=== PATIENT | female | born 1935 | race Caucasian/White ===

== ENCOUNTER → 2017-03-07 | Outpatient (CLI) | payer MEDICARE ==
[~2017-03-07] MED LIST: AMLO10 PO; Amlodipine Bes2.5 MG PO; DABI150C PO; ERGO50000 PO; LEVSOD75 PO; LEVSOD88 PO; LORA.5 PO; LOSA50 PO; MECL25 PO; Macrobid 100 M100 MG PO; NEBI5 PO; OMEP20ER PO; PROP120ER PO; SIMV5 PO; TRIHYD253B PO
== END | disposition home or self-care (01) ==
LOC: PLD 11:56 → LAB SHORT 11:56
DX: D48.5 Neoplasm of uncertain behavior of skin (principal)
CPT/HCPCS: 88305; 88312

== ENCOUNTER → 2017-07-03 | Outpatient (CLI) | payer MEDICARE | LOC: PLD 11:01 → LAB SHORT 11:01 | DX: D48.5 Neoplasm of uncertain behavior of skin (principal) | CPT/HCPCS: 88305 ==

== ENCOUNTER → 2018-12-11 | Outpatient (CLI) | payer MEDICARE ==
[~2018-12-11] MED LIST changes: +IRON240 MG; +PRED20
[2018-12-12 14:40] LABS: Stool Occult Bld Immuno 1 Negative (NEGATIVE); Stool Occult Bld Immuno 2 Positive (NEGATIVE)
== END | disposition home or self-care (01) ==
LOC: LAB SHORT 12-03 14:35 → LAB 14:35 → LAB SHORT 14:35 → LAB FUT 12-10 12:40
PROVIDERS: Internal Medicine
DX: D64.9 Anemia, unspecified (principal)
CPT/HCPCS: G0328

== ENCOUNTER 2018-12-16 17:28 | Emergency (ER) | payer MEDICARE ==
[~2018-12-16] VITALS: Ht 157.5 cm; Wt 66.7 kg
[~2018-12-16 17:28] MED LIST changes: -IRON240 MG; -PRED20
[2018-12-16] MEDS ORDERED: PRED20 (17:52)
[2018-12-16] MEDS ORDERED: IRON240 MG (17:53)
[2018-12-16 18:11] LABS: BASOPHILS ABSOLUTE AUTO 0.01 K/mm3 (0.00-0.23); BASOPHILS PERCENT AUTO 0 % (0-2); EOSINOPHILS PERCENT AUTO 0 % (0-6); Hematocrit 35.9 % (33.0-51.0); Hemoglobin 11.1 g/dL (11.5-16.0); IMMATURE GRAN ABSOLUTE AUTO 0.07 K/mm3 (0.00-0.10); IMMATURE GRAN PERCENT AUTO 1 % (0-1); LYMPHOCYTES ABSOLUTE AUTO 1.43 K/mm3 (0.84-5.20); LYMPHOCYTES PERCENT AUTO 13 % (21-46); MONOCYTES ABSOLUTE AUTO 0.33 K/mm3 (0.16-1.47); MONOCYTES PERCENT AUTO 3 % (4-13); Mean Corpuscular HGB 26.8 pg (26.0-34.0); Mean Corpuscular HGB Conc 30.9 g/dL (31.5-36.5); Mean Corpuscular Volume 87 fL (80-100); Mean Platelet Volume 9.3 fL (9.1-12.4); NEUTROPHILS ABSOLUTE AUTO 9.17 K/mm3 (1.96-9.15); NEUTROPHILS PERCENT AUTO 83 % (41-73); Platelet Count 296 K/mm3 (150-400); RDW Coefficient Variation 13.7 % (11.7-14.2); RDW Standard Deviation 43.7 fL (35.1-46.3); Red Blood Cell Count 4.14 M/mm3 (3.80-5.20); White Blood Cell Count 11.01 K/mm3 (4.00-11.30)
[2018-12-16 18:51] LABS: Albumin, Blood 2.5 g/dL (3.4-5.0); Albumin/Globulin Ratio 0.7 (0.8-1.8); Bilirubin, Total 0.4 mg/dL (0.1-1.0); Calcium, Blood 8.9 mg/dL (8.5-10.1); Globulin, Blood 3.4 g/dL (2.2-4.0); Potassium, Blood 4.2 mmol/L (3.5-5.5); Total Protein, Blood 5.9 g/dL (6.4-8.2)
[2018-12-16 19:01] LABS: Source, Urine Clean Catch
[2018-12-16 19:05] LABS: Bilirubin, Urine Neg (Neg); Blood, Urine Neg (Neg); Glucose Qualitative, Urine Neg (Neg); Ketones, Urine 2+ (Neg); Leukocyte Esterase, Urine Neg (Neg); Nitrite, Urine Neg (Neg); Protein, Urine Neg (Neg); Urobilinogen, Urine NORM (Normal)
[2018-12-16 19:14] LABS: Appearance, Urine Hazy (Clear); Color, Urine Yellow (P-Yellow)
[2018-12-16 19:15] LABS: Amorphous Mod (0-Heavy); Bacteria Few /hpf; Red Blood Cells, Urine 0-2 /hpf (0-2); Squamous Epithelial Cells Few /hpf (Few); White Blood Cells, Urine 0-2 /hpf (0-5)
== END 2018-12-16 22:03 | disposition home or self-care (01) ==
LOC: ER 17:28
PROVIDERS: Emergency Medicine
DX: R10.31 Right lower quadrant pain (principal); R10.32 Left lower quadrant pain; R11.0 Nausea; I10 Essential (primary) hypertension; K21.9 Gastro-esophageal reflux disease without esophagitis; D64.9 Anemia, unspecified; Z79.899 Other long term (current) drug therapy
CPT/HCPCS: 36415; 74177; 80053; 81001; 83690; 85025; 86850; 86900; 86901; 93005; 93010; 96360-59; 96361; 99284-25; A9270; A9270-GY; J7030; P9612; Q9967

== ENCOUNTER 2018-12-25 09:23 | Day surgery (SDC) | payer MEDICARE ==
[~2018-12-25] VITALS: Ht 154.9 cm; Wt 64.6 kg
[~2018-12-25 09:23] MED LIST changes: +IRON240 MG; +PRED20
--- NOTE | 2018-12-25 10:41 | NUR ---
12/25/18 1041 Vanita Vitale PT IS GIVEN VERSED PER ORDERS FROM DR PHAM AND HER HR DROPPED TO 38-48 BMP SHE HAS AFIB, WAS CONNECTED TO THREE LEAD ECG AND HER HEART RATE READS IN THE 70'S NOW, O2 99% ON 2 L VIA NC. BP 118/59. SHE IS RELAXED AND TALKING TO THE NURSE. DR PHAM WAS NOTIFIED, DR PHAM IS CONSULTING DR HERNANDEZ.
--- NOTE | 2018-12-25 11:41 | NUR ---
12/25/18 1141 Leslie Fuentes PT IN A-FIB WITH BRADYCARDIC EPISODE NOTED IN PRE-OP. DR HERNANDEZ IN ROOM FOR THE CASE. PATIENT WITH ARRYTHMIA DUE TO PACEMAKER BEING NON-ACTIVE/BATTERY ISSUES. AT THE START OF THE CASE PT NOTED TO BE IN SVT AND THEN TACHYCARDIC. PER DR HERNANDEZ PT ADVISED TO BEAR DOWN. PT CONVERTED BACK TO NORMAL SINUS RHYTHM. PT WAS NON-SYMPTOMATIC AND TALKING. HEART CENTER WILL BE NOTIFIED FOR CONSULT. NO FURTHER ORDER GIVEN AT THIS TIME. WILL CONTINUE TO MONITOR AND REPORT TO DIRECTOR OF OPTIMIZATION.
--- NOTE | 2018-12-25 12:52 | NUR ---
12/25/18 1252 Naman Shukla LATE ENTRY FOR 1155 PT IN RECLINER WITH FAMILY IN ROOM. VITAS STABLE. SEE VITAL STRIP. HEART CENTER HAS BEEN CALLED TO COME EVALUATE PACE MAKER. PT DENIES ANY NEEDS AT THIS TIME. WILL CONTINUE TO MONITOR PT.
== END 2018-12-25 13:31 | disposition home or self-care (01) ==
LOC: ORSCSDS 09:23
PROVIDERS: Otolaryngology
PROC: 03BS0ZX Excision of Right Temporal Artery, Open Approach, Diagnostic (ICD-10-PCS; principal; 2018-12-25 10:45)
DX: M31.6 Other giant cell arteritis (principal); I10 Essential (primary) hypertension; I48.91 Unspecified atrial fibrillation; I49.5 Sick sinus syndrome; Z95.0 Presence of cardiac pacemaker; E03.9 Hypothyroidism, unspecified; Z79.899 Other long term (current) drug therapy
CPT/HCPCS: 88305; 88313; J2250; J3010; J7120

== ENCOUNTER 2019-11-20 10:34 | Inpatient (IN) | payer MEDICARE ==
[~2019-11-20] VITALS: Ht 154.9 cm; Wt 67.7 kg
[~2019-11-20 10:34] MED LIST changes: -IRON240 MG; -LOSA50 PO
[2019-11-20] MEDS ORDERED: DIGOX125 MC1 PO (11:00)
[2019-11-20] MEDS ORDERED: PRED5 PO (11:09)
[2019-11-20] MEDS ORDERED: HYDCHL12.5 PO (11:11)
[2019-11-20] MEDS ORDERED: PRADAXA110 MG PO (11:11)
[2019-11-20 11:15] LABS: BASOPHILS ABSOLUTE AUTO 0.05 K/mm3 (0.00-0.23); BASOPHILS PERCENT AUTO 0 % (0-2); EOSINOPHILS ABSOLUTE AUTO 0.09 K/mm3 (0.00-0.68); EOSINOPHILS PERCENT AUTO 1 % (0-6); Hematocrit 42.7 % (33.0-51.0); Hemoglobin 13.6 g/dL (11.5-16.0); IMMATURE GRAN ABSOLUTE AUTO 0.08 K/mm3 (0.00-0.10); IMMATURE GRAN PERCENT AUTO 1 % (0-1); LYMPHOCYTES ABSOLUTE AUTO 1.73 K/mm3 (0.84-5.20); LYMPHOCYTES PERCENT AUTO 14 % (21-46); MONOCYTES ABSOLUTE AUTO 1.17 K/mm3 (0.16-1.47); MONOCYTES PERCENT AUTO 9 % (4-13); Mean Corpuscular HGB 30.4 pg (26.0-34.0); Mean Corpuscular HGB Conc 31.9 g/dL (31.5-36.5); Mean Corpuscular Volume 96 fL (80-100); Mean Platelet Volume 10.2 fL (9.1-12.4); NEUTROPHILS ABSOLUTE AUTO 9.67 K/mm3 (1.96-9.15); NEUTROPHILS PERCENT AUTO 76 % (41-73); Platelet Count 246 K/mm3 (150-400); RDW Standard Deviation 45.9 fL (35.1-46.3); Red Blood Cell Count 4.47 M/mm3 (3.80-5.20); White Blood Cell Count 12.79 K/mm3 (4.00-11.30)
[2019-11-20] MEDS ORDERED: SYNTHROID50 MC1 PO (11:15)
[2019-11-20] MEDS ORDERED: Inderal40 MG PO (11:23)
[2019-11-20 11:36] LABS: Albumin, Blood 3.1 g/dL (3.4-5.0); Albumin/Globulin Ratio 0.9 (0.8-1.8); Bilirubin, Total 0.7 mg/dL (0.1-1.0); Bun/Creatinine Ratio 12.8 (12.0-20.0); Calcium, Blood 9.1 mg/dL (8.5-10.1); Creatinine, Blood 1.17 mg/dL (0.40-1.00); Globulin, Blood 3.4 g/dL (2.2-4.0); Potassium, Blood 4.3 mmol/L (3.5-5.5); Total Protein, Blood 6.5 g/dL (6.4-8.2)
[2019-11-20 12:11] LABS: Digoxin (Lanoxin) 0.73 ug/mL (0.80-2.00)
[2019-11-20] MEDS ORDERED: LOSA25 PO (13:23)
[2019-11-20] MEDS ORDERED: Potassium Chlo20 ME1 PO (13:23)
[2019-11-20] MEDS ORDERED: FEROSUL325 M1 PO (13:27)
[2019-11-20] MEDS ORDERED: VITAMIN D325 MC3 PO (14:24)
[2019-11-20] MEDS ORDERED: Fibercon625 MG PO (14:24)
[2019-11-20] MEDS ORDERED: OMEP20ER PO (15:31)
[2019-11-20] MEDS ORDERED: CALCIUM CIT 311 EACH PO (15:33)
--- NOTE | 2019-11-20 15:40 | NUR ---
PT'S PACEMAKER CHECK PER V/O FROM DR DUQUE. DEVICE BATTERY ADDI/DIRECTOR PHARMACOVIGILANCE PACING VVI 65 BPM. REPORT GIVEN TO DR DUQUE, ROUTED IN PACEART/OPTIMA.
--- NOTE | 2019-11-20 16:46 | NUR ---
ASSUMED PATIENT CARE. PATIENT RESTING COMFORTABLY IN BED, CONVERSING WITH NURSING STAFF. DENIES CHEST PAIN, WCTM.
--- NOTE | 2019-11-20 18:19 | NUR ---
PATIENT TRANSFERED FROM ED SECOND HALF OF SHIFT. PATIENT DENIED CHEST PAIN/PRESSURE. PLAN IS FOR PACEMAKER EVAL TOMORROW WITH DR. DUQUE, IV DIURESIS WITH LASIX TO START TONIGHT AND PROCEED Q12. PATIENT ON TELE, 100% VENTRICULAR PACED.
--- NOTE | 2019-11-21 01:46 | NUR ---
11/20/19 194 RESTING COMFORTABLY WITH SPOUSE AT SIDE; DENIES CHEST PAIN OR DYSPNEA. 11/21/19 0130 RESTING COMFORTABLY; NPO AFTER MIDNIGHT.
--- NOTE | 2019-11-21 03:29 | NUR ---
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
[2019-11-21 04:22] LABS: BASOPHILS ABSOLUTE AUTO 0.03 K/mm3 (0.00-0.23); BASOPHILS PERCENT AUTO 0 % (0-2); EOSINOPHILS ABSOLUTE AUTO 0.06 K/mm3 (0.00-0.68); EOSINOPHILS PERCENT AUTO 1 % (0-6); Hematocrit 39.8 % (33.0-51.0); Hemoglobin 12.8 g/dL (11.5-16.0); IMMATURE GRAN ABSOLUTE AUTO 0.05 K/mm3 (0.00-0.10); IMMATURE GRAN PERCENT AUTO 1 % (0-1); LYMPHOCYTES ABSOLUTE AUTO 2.28 K/mm3 (0.84-5.20); LYMPHOCYTES PERCENT AUTO 21 % (21-46); MONOCYTES ABSOLUTE AUTO 1.31 K/mm3 (0.16-1.47); MONOCYTES PERCENT AUTO 12 % (4-13); Mean Corpuscular HGB Conc 32.2 g/dL (31.5-36.5); Mean Corpuscular Volume 93 fL (80-100); Mean Platelet Volume 10.2 fL (9.1-12.4); NEUTROPHILS ABSOLUTE AUTO 7.31 K/mm3 (1.96-9.15); NEUTROPHILS PERCENT AUTO 66 % (41-73); Platelet Count 213 K/mm3 (150-400); RDW Coefficient Variation 12.9 % (11.7-14.2); RDW Standard Deviation 44.2 fL (35.1-46.3); Red Blood Cell Count 4.26 M/mm3 (3.80-5.20); White Blood Cell Count 11.04 K/mm3 (4.00-11.30)
[2019-11-21 04:45] LABS: Albumin, Blood 2.8 g/dL (3.4-5.0); Albumin/Globulin Ratio 0.9 (0.8-1.8); Bilirubin, Total 1.1 mg/dL (0.1-1.0); Bun/Creatinine Ratio 12.8 (12.0-20.0); Calcium, Blood 8.8 mg/dL (8.5-10.1); Creatinine, Blood 1.33 mg/dL (0.40-1.00); Globulin, Blood 3.2 g/dL (2.2-4.0); Potassium, Blood 3.7 mmol/L (3.5-5.5)
--- NOTE | 2019-11-21 10:51 | NUR ---
UPDATE HR CONVERTED TO AFIB IN THE 130'S. BP STABLE. DR. DUQUE CALLED AND NOTIFED OF HEART SUSTAINING IN THE 130'S FOR THE LAST 1O MIN APPROXIMATELY. NO NEW ORDERS AT THIS TIME. WILL CONTINUE TO MONITOR CLOSELY.
--- NOTE | 2019-11-21 17:31 | NUR ---
UPDATE PT TAKEN TO DIRECTOR OF CATERING. WILL AWAIT RETURN.
--- NOTE | 2019-11-22 05:10 | NUR ---
SHIFT SUMMARY CARDIAC PACEMAKER BATTERY FAIL, A/O X4, VSS, AMBULATING WELL, VOIDING WELL, TOLERATING PO, SURG DRESS C/D/I. WILL CONTINUE TO MONITOR AND REPORT TO ONCOMING DAY RN.
--- NOTE | 2019-11-22 08:38 | NUR ---
DENIES ANY CP, SOB OR ANY DISCOMFORT AT THIS TIME, STATES "I FEEL MUCH BETTER" EATING BREAKFAST, TOLERATING WELL, L UPPER CHEST DSG C/D/I, CONT. TO MONITOR FOR ANY CHANGES.
[2019-11-22] MEDS ORDERED: ACET325 PO (11:59)
--- NOTE | 2019-11-22 12:35 | NUR ---
DC'D HOME, DC INSTRUCTIONS GIVEN, VERBALIZED UNDERSTANDING.
== END 2019-11-22 12:29 | disposition home or self-care (01) | DRG 262 ==
LOC: ER 10:34 → ERHOLD 13:26 → PCU 13:26 → SURS 11-21 19:03
PROVIDERS: Emergency Medicine; Physician Assistant; ADMIT Family Medicine
PROC: 0JWT0PZ Revision of Cardiac Rhythm Related Device in Trunk Subcutaneous Tissue and Fascia, Open Approach (ICD-10-PCS; principal; 2019-11-21)
PROC: 3E0132A Introduction of Anti-Infective Envelope into Subcutaneous Tissue, Percutaneous Approach (ICD-10-PCS; 2019-11-21)
DX: T82.111A Breakdown (mechanical) of cardiac pulse generator (battery), initial encounter (principal); I10 Essential (primary) hypertension; E78.5 Hyperlipidemia, unspecified; E03.9 Hypothyroidism, unspecified; K21.9 Gastro-esophageal reflux disease without esophagitis; M35.3 Polymyalgia rheumatica; I48.0 Paroxysmal atrial fibrillation; M31.6 Other giant cell arteritis; G25.0 Essential tremor; I25.10 Atherosclerotic heart disease of native coronary artery without angina pectoris; I49.5 Sick sinus syndrome
CPT/HCPCS: 33228; 36415; 71046; 76937; 80053; 80162; 83880; 84484; 85025; 93005; 93010; 93288; 93306; 97161; 99152; 99153; 99285-25; A9270; A9270-GY; C1781; C1786; J0690; J1644; J1940; J2250; J3010; J7040; J7050; J7512

== ENCOUNTER → 2019-12-31 | Outpatient (CLI) | payer MEDICARE ==
[~2019-12-31] MED LIST changes: +ACET325 PO; +CALCIUM CIT 311 EACH PO; +DIGOX125 MC1 PO; +FEROSUL325 M1 PO; +Fibercon625 MG PO; +HYDCHL12.5 PO; +Inderal40 MG PO; +LOSA25 PO; +PRADAXA110 MG PO; +PRED5 PO; +Potassium Chlo20 ME1 PO; +SYNTHROID50 MC1 PO; +VITAMIN D325 MC3 PO
== END | disposition home or self-care (01) ==
LOC: LAB SHORT 11:25 → PLD 11:25
DX: D48.5 Neoplasm of uncertain behavior of skin (principal)
CPT/HCPCS: 88305

== ENCOUNTER 2020-08-07 22:40 | Observation (INO) | payer MEDICARE ==
[~2020-08-07] VITALS: Ht 157.5 cm; Wt 62.3 kg
[~2020-08-07 22:40] MED LIST changes: -AMIODARONE TAB 200; -Amiodarone HCl200 MG PO; -FOLI1; -HYDROCODONE-AC1 EA12 PO; -METHOTREXATE2.5 M3 PO; -Prednisone20 MG PO; -TRAM50 PO; -VALA500 PO; -VALTREX PO; -Zovirax800 MG PO
[2020-08-07 22:53] LABS: BASOPHILS ABSOLUTE AUTO 0.03 K/mm3 (0.00-0.23); BASOPHILS PERCENT AUTO 0 % (0-2); EOSINOPHILS ABSOLUTE AUTO 0.12 K/mm3 (0.00-0.68); EOSINOPHILS PERCENT AUTO 1 % (0-6); Hematocrit 37.1 % (33.0-51.0); Hemoglobin 12.6 g/dL (11.5-16.0); IMMATURE GRAN ABSOLUTE AUTO 0.03 K/mm3 (0.00-0.10); IMMATURE GRAN PERCENT AUTO 0 % (0-1); LYMPHOCYTES ABSOLUTE AUTO 3.93 K/mm3 (0.84-5.20); LYMPHOCYTES PERCENT AUTO 45 % (21-46); MONOCYTES ABSOLUTE AUTO 0.59 K/mm3 (0.16-1.47); MONOCYTES PERCENT AUTO 7 % (4-13); Mean Corpuscular HGB 31.5 pg (26.0-34.0); Mean Corpuscular Volume 93 fL (80-100); NEUTROPHILS PERCENT AUTO 46 % (41-73); Platelet Count 216 K/mm3 (150-400); RDW Coefficient Variation 14.4 % (11.7-14.2)
[2020-08-07] MEDS ORDERED: VALTREX PO (22:53)
[2020-08-07] MEDS ORDERED: HYDROCODONE-AC1 EA12 PO (22:53)
[2020-08-07] MEDS ORDERED: AMIODARONE TAB 200 (22:53)
[2020-08-07] MEDS ORDERED: METHOTREXATE2.5 M3 PO (22:54)
[2020-08-07] MEDS ORDERED: FOLI1 (22:54)
[2020-08-07 23:11] LABS: Albumin, Blood 3.4 g/dL (3.4-5.0); Albumin/Globulin Ratio 1.2 (0.8-1.8); Bilirubin, Total 0.7 mg/dL (0.1-1.0); Bun/Creatinine Ratio 17.1 (12.0-20.0); Calcium, Blood 8.8 mg/dL (8.5-10.1); Creatinine, Blood 1.17 mg/dL (0.40-1.00); Globulin, Blood 2.9 g/dL (2.2-4.0); Potassium, Blood 3.5 mmol/L (3.5-5.5); Total Protein, Blood 6.3 g/dL (6.4-8.2)
[2020-08-07] MEDS ORDERED: Prednisone20 MG PO (23:27)
[2020-08-07] MEDS ORDERED: Zovirax800 MG PO (23:27)
--- NOTE | 2020-08-08 04:37 | NUR ---
SHIFT SUMMARY ASSUMED CARE OF PT AT 0210. PT IS A/OX4. HEART SOUNDS REGULAR, PT HAS PACEMAKER. LUNG SOUNDS CLEAR. PT HAS A RED RASH ALONG UNDER HER R BREAST AND BACK. PT DENIES PAIN AT THIS TIME. PT HAS TREMORS, SHE STATES THAT HAS BEEN A PROBLEM SINCE YEARS AGO. PT C/O BEING WEAKER THEN NORMAL. CALL LIGHT IN REACH, BED IN LOWEST POSITION.
[2020-08-08 05:02] LABS: BASOPHILS ABSOLUTE AUTO 0.01 K/mm3 (0.00-0.23); BASOPHILS PERCENT AUTO 0 % (0-2); EOSINOPHILS PERCENT AUTO 0 % (0-6); Hematocrit 37.6 % (33.0-51.0); Hemoglobin 12.4 g/dL (11.5-16.0); IMMATURE GRAN ABSOLUTE AUTO 0.04 K/mm3 (0.00-0.10); IMMATURE GRAN PERCENT AUTO 1 % (0-1); LYMPHOCYTES ABSOLUTE AUTO 0.36 K/mm3 (0.84-5.20); LYMPHOCYTES PERCENT AUTO 5 % (21-46); MONOCYTES PERCENT AUTO 1 % (4-13); Mean Corpuscular HGB 31.2 pg (26.0-34.0); Mean Corpuscular Volume 95 fL (80-100); Mean Platelet Volume 10.4 fL (9.1-12.4); NEUTROPHILS ABSOLUTE AUTO 6.44 K/mm3 (1.96-9.15); NEUTROPHILS PERCENT AUTO 93 % (41-73); Platelet Count 209 K/mm3 (150-400); RDW Coefficient Variation 14.6 % (11.7-14.2); RDW Standard Deviation 50.3 fL (35.1-46.3); Red Blood Cell Count 3.98 M/mm3 (3.80-5.20); White Blood Cell Count 6.95 K/mm3 (4.00-11.30)
[2020-08-08 05:27] LABS: Albumin, Blood 3.1 g/dL (3.4-5.0); Albumin/Globulin Ratio 1.1 (0.8-1.8); Bilirubin, Total 0.7 mg/dL (0.1-1.0); Bun/Creatinine Ratio 17.8 (12.0-20.0); Calcium, Blood 8.3 mg/dL (8.5-10.1); Creatinine, Blood 1.18 mg/dL (0.40-1.00); Globulin, Blood 2.8 g/dL (2.2-4.0); Potassium, Blood 3.9 mmol/L (3.5-5.5); Total Protein, Blood 5.9 g/dL (6.4-8.2)
[2020-08-08] MEDS ORDERED: Amiodarone HCl200 MG PO (14:33)
[2020-08-08] MEDS ORDERED: VALA500 PO (14:33)
[2020-08-08] MEDS ORDERED: TRAM50 PO (14:35)
--- NOTE | 2020-08-08 15:30 | NUR ---
DISCHARGE SUMMARY PATIENT DISCHARGED TO HOME. PATIENT ALERT, ORIENTED, INDEPENDENT IN THE ROOM THIS SHIFT. PATIENT HAS UNOPEN SHINGLES ALONG HER RIGHT ABDOMEN. PATIENT STATES PAIN IS RESOLVED WITH ONLY OCCASIONAL TWINGES TODAY. PATIENT'S SPOUSE IN THE ROOM AT DISCHARGE. DISCHARGE AND MEDIATION INSTRUCTIONS REVIEWED WITH PATIENT, ALL QUESTIONS ANSWERED TO PATIENT AND SPOUSE'S SATISFACTION. IV REMOVED PRIOR TO DISCHARGE. PATIENT DRESSED INDEPENDENTLY. PATIENT TO VEHICLE VIA WHEELCHAIR.
== END 2020-08-08 15:36 | disposition home or self-care (01) ==
LOC: ER 22:40 → MEDS 22:41
PROVIDERS: Emergency Medicine; ADMIT Internal Medicine
DX: B02.9 Zoster without complications (principal); I12.9 Hypertensive chronic kidney disease with stage 1 through stage 4 chronic kidney disease, or unspecified chronic kidney disease; N18.30 Chronic kidney disease, stage 3 unspecified; I48.91 Unspecified atrial fibrillation; I25.10 Atherosclerotic heart disease of native coronary artery without angina pectoris; E03.9 Hypothyroidism, unspecified; M19.90 Unspecified osteoarthritis, unspecified site
CPT/HCPCS: 36415; 80053; 85025; 96365; 96375; 99285-25; A9270; G0378; J0133; J1650; J1885; J2270; J2930; J7512

== ENCOUNTER → 2020-08-07 | Outpatient (CLI) | payer MEDICARE ==
[~2020-08-07] MED LIST changes: +AMIODARONE TAB 200; +Amiodarone HCl200 MG PO; +FOLI1; +HYDROCODONE-AC1 EA12 PO; +METHOTREXATE2.5 M3 PO; +Prednisone20 MG PO; +TRAM50 PO; +VALA500 PO; +VALTREX PO; +Zovirax800 MG PO
[2020-08-07 10:51] LABS: BASOPHILS ABSOLUTE AUTO 0.03 K/mm3 (0.00-0.23); BASOPHILS PERCENT AUTO 1 % (0-2); EOSINOPHILS ABSOLUTE AUTO 0.08 K/mm3 (0.00-0.68); EOSINOPHILS PERCENT AUTO 1 % (0-6); Hematocrit 39.8 % (33.0-51.0); IMMATURE GRAN ABSOLUTE AUTO 0.03 K/mm3 (0.00-0.10); IMMATURE GRAN PERCENT AUTO 1 % (0-1); LYMPHOCYTES ABSOLUTE AUTO 1.43 K/mm3 (0.84-5.20); LYMPHOCYTES PERCENT AUTO 22 % (21-46); MONOCYTES ABSOLUTE AUTO 0.57 K/mm3 (0.16-1.47); MONOCYTES PERCENT AUTO 9 % (4-13); Mean Corpuscular HGB 31.6 pg (26.0-34.0); Mean Corpuscular HGB Conc 32.7 g/dL (31.5-36.5); Mean Corpuscular Volume 97 fL (80-100); NEUTROPHILS ABSOLUTE AUTO 4.48 K/mm3 (1.96-9.15); NEUTROPHILS PERCENT AUTO 68 % (41-73); Platelet Count 227 K/mm3 (150-400); RDW Coefficient Variation 15.1 % (11.7-14.2); RDW Standard Deviation 53.3 fL (35.1-46.3); Red Blood Cell Count 4.12 M/mm3 (3.80-5.20); White Blood Cell Count 6.62 K/mm3 (4.00-11.30)
[2020-08-07 10:59] LABS: Albumin, Blood 3.3 g/dL (3.4-5.0); Bilirubin, Total 0.6 mg/dL (0.1-1.0); Bun/Creatinine Ratio 15.9 (12.0-20.0); Calcium, Blood 9.1 mg/dL (8.5-10.1); Creatinine, Blood 1.45 mg/dL (0.40-1.00); Globulin, Blood 3.2 g/dL (2.2-4.0); Potassium, Blood 4.6 mmol/L (3.5-5.5); Total Protein, Blood 6.5 g/dL (6.4-8.2)
== END ==
LOC: LAB SHORT 10:46 → LAB EV 10:46
PROVIDERS: General Practice
DX: B02.9 Zoster without complications (principal)
CPT/HCPCS: 80053; 85025

== ENCOUNTER 2020-10-26 18:11 | Emergency (ER) | payer MEDICARE ==
[~2020-10-26] VITALS: Ht 157.5 cm; Wt 62.1 kg
[~2020-10-26 18:11] MED LIST changes: +AMIODARONE TAB 200; +Amiodarone HCl200 MG PO; +FOLI1; +HYDROCODONE-AC1 EA12 PO; +METHOTREXATE2.5 M3 PO; +Prednisone20 MG PO; +TRAM50 PO; +VALA500 PO; +VALTREX PO; +Zovirax800 MG PO
[2020-10-26] MEDS ORDERED: ONDA4ODT MM (20:56)
== END 2020-10-26 21:12 | disposition home or self-care (01) ==
LOC: ER 18:11
DX: U07.1 COVID-19 (principal); R11.0 Nausea; I10 Essential (primary) hypertension; K21.9 Gastro-esophageal reflux disease without esophagitis; Z79.899 Other long term (current) drug therapy; Z79.890 Hormone replacement therapy
CPT/HCPCS: 96374; 99284-25; A9270; J2405; M0243; Q0243

== ENCOUNTER → 2021-06-29 | Outpatient (CLI) | payer MEDICARE ==
[~2021-06-29] MED LIST changes: +ONDA4ODT MM
== END | disposition home or self-care (01) ==
LOC: LAB SHORT 15:21 → PLD 15:21
DX: C44.612 Basal cell carcinoma of skin of right upper limb, including shoulder (principal); C44.311 Basal cell carcinoma of skin of nose; L57.0 Actinic keratosis
CPT/HCPCS: 88305

== ENCOUNTER 2022-09-24 10:40 | Emergency (ER) | payer MEDICARE ==
[~2022-09-24] VITALS: Ht 157.5 cm; Wt 56.7 kg
[2022-09-24 11:23] LABS: BASOPHILS ABSOLUTE AUTO 0.02 K/mm3 (0.00-0.23); BASOPHILS PERCENT AUTO 0 % (0-2); EOSINOPHILS ABSOLUTE AUTO 0.09 K/mm3 (0.00-0.68); EOSINOPHILS PERCENT AUTO 1 % (0-6); Hematocrit 39.8 % (33.0-51.0); Hemoglobin 13.1 g/dL (11.5-16.0); IMMATURE GRAN ABSOLUTE AUTO 0.01 K/mm3 (0.00-0.10); IMMATURE GRAN PERCENT AUTO 0 % (0-1); LYMPHOCYTES ABSOLUTE AUTO 1.44 K/mm3 (0.84-5.20); LYMPHOCYTES PERCENT AUTO 20 % (21-46); MONOCYTES ABSOLUTE AUTO 0.53 K/mm3 (0.16-1.47); MONOCYTES PERCENT AUTO 8 % (4-13); Mean Corpuscular HGB Conc 32.9 g/dL (31.5-36.5); Mean Corpuscular Volume 91 fL (80-100); Mean Platelet Volume 9.7 fL (9.1-12.4); NEUTROPHILS ABSOLUTE AUTO 4.96 K/mm3 (1.96-9.15); NEUTROPHILS PERCENT AUTO 70 % (41-73); Platelet Count 204 K/mm3 (150-400); RDW Coefficient Variation 12.9 % (11.7-14.2); RDW Standard Deviation 43.3 fL (35.1-46.3); Red Blood Cell Count 4.36 M/mm3 (3.80-5.20); White Blood Cell Count 7.05 K/mm3 (4.00-11.30)
[2022-09-24 11:41] LABS: Albumin, Blood 3.1 g/dL (3.4-5.0); Bilirubin, Total 0.4 mg/dL (0.1-1.0); Bun/Creatinine Ratio 15.7 (12.0-20.0); Calcium, Blood 8.8 mg/dL (8.5-10.1); Creatinine, Blood 1.02 mg/dL (0.40-1.00); Globulin, Blood 3.2 g/dL (2.2-4.0); Potassium, Blood 4.1 mmol/L (3.5-5.5); Total Protein, Blood 6.3 g/dL (6.4-8.2)
[2022-09-24] MEDS ORDERED: Primidone50 MG PO (12:00)
[2022-09-24] MEDS ORDERED: METOPROLOL TART5010 PO (12:00)
[2022-09-24] MEDS ORDERED: Flecainide Acet50 MG PO (12:01)
[2022-09-24 12:20] VITALS: BP 172/73
== END 2022-09-24 13:04 | disposition home or self-care (01) ==
LOC: ER 10:40
PROVIDERS: Emergency Medicine
DX: R55 Syncope and collapse (principal); I10 Essential (primary) hypertension; Z79.899 Other long term (current) drug therapy
CPT/HCPCS: 80053; 83880; 85025; 93005; 93010; 99285-25

== ENCOUNTER 2023-08-21 19:07 | Emergency (ER) | payer OTHER ==
[~2023-08-21] VITALS: Ht 162.6 cm; Wt 59.0 kg
[~2023-08-21 19:07] MED LIST changes: +Flecainide Acet50 MG PO; +METOPROLOL TART5010 PO; +Primidone50 MG PO
[2023-08-21] MEDS ORDERED: XARELTO15 M1 PO (21:49)
[2023-08-21] MEDS ORDERED: Lidocaine/Tetracaine/Epinephr 4 ML SOLN TOP ONE (22:30)
[2023-08-21] MEDS ORDERED: Acetaminophen 500 MG Tab PO ONE (22:40)
[2023-08-21] MEDS ORDERED: OxyCODONE HCL 5 MG TAB PO ONE (22:40)
[2023-08-22 00:12] VITALS: BP 165/85
== END 2023-08-22 00:14 | disposition home or self-care (01) ==
LOC: ER 19:07
DX: S01.81XA Laceration without foreign body of other part of head, initial encounter (principal); S81.811A Laceration without foreign body, right lower leg, initial encounter; I48.91 Unspecified atrial fibrillation; I10 Essential (primary) hypertension; K21.9 Gastro-esophageal reflux disease without esophagitis; W01.0XXA Fall on same level from slipping, tripping and stumbling without subsequent striking against object, initial encounter; Z79.899 Other long term (current) drug therapy
CPT/HCPCS: 12011; 70450; 99283-25; A9270